=== PATIENT | male | born 1995 | race African-American/Black ===

== ENCOUNTER 2017-04-11 08:32 | Emergency (ER) | payer OTHER ==
[~2017-04-11] VITALS: Ht 172.7 cm; Wt 81.6 kg
[2017-04-11 08:54] VITALS: BP 134/87
== END 2017-04-11 10:04 | disposition home or self-care (01) ==
LOC: ER 08:32
DX: J20.9 Acute bronchitis, unspecified (principal); F12.90 Cannabis use, unspecified, uncomplicated; F17.210 Nicotine dependence, cigarettes, uncomplicated

== ENCOUNTER 2017-04-14 22:08 | Emergency (ER) | payer OTHER ==
[~2017-04-14] VITALS: Ht 172.7 cm; Wt 81.6 kg
[2017-04-14 22:22] VITALS: BP 141/97
[2017-04-15] MEDS ORDERED: ACETAMINOPHEN 500 MG TAB PO ONE
== END 2017-04-15 00:13 ==
LOC: ER 22:14
DX: S61.234A Puncture wound without foreign body of right ring finger without damage to nail, initial encounter (principal); M25.571 Pain in right ankle and joints of right foot; R51 Headache; V49.3XXA Car occupant (driver) (passenger) injured in unspecified nontraffic accident, initial encounter; Y93.89 Activity, other specified; Y92.89 Other specified places as the place of occurrence of the external cause; Y99.8 Other external cause status
CPT/HCPCS: 73610

== ENCOUNTER 2017-06-15 19:51 | Emergency (ER) | payer OTHER ==
[~2017-06-15] VITALS: Ht 172.7 cm; Wt 83.9 kg
[2017-06-15 20:06] VITALS: BP 152/95
[2017-06-15] MEDS ORDERED: AZITHROMYCIN 250 MG TAB PO ONE (21:45)
[2017-06-15] MEDS ORDERED: cefTRIAXone SODIUM 250 MG VL IM ONE (21:45)
[2017-06-15 22:16] LABS: Urine Bacteria NONE SEEN /hpf (None Seen); Urine Blood TRACE /uL (Negative); Urine Mucus FEW (None Seen); Urine Specific Gravity 1.019 (1.001-1.035); Urine WBC 842 /hpf (0 - 3)
== END 2017-06-15 22:55 | disposition home or self-care (01) ==
LOC: ER 19:51
DX: A64 Unspecified sexually transmitted disease (principal)
CPT/HCPCS: 81001; 96372; 99283; J0696